=== PATIENT | male | born 1935 | race Caucasian/White ===

== ENCOUNTER 2021-05-18 14:13 | Outpatient (CLI) | payer MEDICARE | END 2021-05-18 14:14 | disposition home or self-care (01) | LOC: TBSIIMAG 14:13 | PROVIDERS: ATTEND Neurological Surgery | DX: M48.062 Spinal stenosis, lumbar region with neurogenic claudication (principal); M48.07 Spinal stenosis, lumbosacral region; M47.816 Spondylosis without myelopathy or radiculopathy, lumbar region; M43.16 Spondylolisthesis, lumbar region; M51.36 Other intervertebral disc degeneration, lumbar region; Z98.890 Other specified postprocedural states | CPT/HCPCS: 72110; 72158; 82565 ==

== ENCOUNTER 2024-02-22 19:36 | Emergency (ER) | payer MEDICARE, OTHER ==
[2024-02-22] MEDS ORDERED: Bacitracin 1 PK ONE (22:48)
== END 2024-02-22 23:10 | disposition home or self-care (01) ==
LOC: ERS 19:36
DX: S22.31XA Fracture of one rib, right side, initial encounter for closed fracture (principal); S01.01XA Laceration without foreign body of scalp, initial encounter; S50.311A Abrasion of right elbow, initial encounter; S09.90XA Unspecified injury of head, initial encounter; I50.9 Heart failure, unspecified; I48.91 Unspecified atrial fibrillation; G20.A1 Parkinson's disease without dyskinesia, without mention of fluctuations; W18.09XA Striking against other object with subsequent fall, initial encounter; Y93.89 Activity, other specified; Z95.5 Presence of coronary angioplasty implant and graft; I11.0 Hypertensive heart disease with heart failure; I48.20 Chronic atrial fibrillation, unspecified
CPT/HCPCS: 12002; 70450; 71250; 72125; 81001; 87086